=== PATIENT | male | born 1995 | race Caucasian/White ===

== ENCOUNTER 2018-09-21 13:23 | Emergency (ER) | payer MEDICAID ==
[~2018-09-21] VITALS: Ht 177.8 cm; Wt 86.0 kg
[2018-09-21] MEDS: ONDANSETRON HCL 4MG/2ML INJ IV STA (14:25)
[2018-09-21] MEDS: SODIUM CHLORIDE 0.9% 1,000 ML IV ONE (14:25)
[2018-09-21 14:49] LABS: BASOPHILS % 0.5 % (0.0-2.0); EOSINOPHILS % 0.5 % (0.0-5.0); HEMATOCRIT. 50.1 % (42.0-52.0); HEMOGLOBIN. 17.4 g/dL (14.0-18.0); LYMPHOCYTES % 22.9 % (20.0-50.0); MEAN CORPUSCULAR HEMOGLOBIN 30.7 pg (28.0-32.0); MEAN CORPUSCULAR VOLUME 88.5 fL (80.0-94.0); MEAN PLATELET VOLUME 8.6 fl (7.4-10.4); MONOCYTES % 7.6 % (2.0-8.0); NEUTROPHILS % 68.5 % (40.0-76.0); PLATELET 254 x1000/uL (130-400); RED BLOOD CELL COUNT 5.66 mill/uL (4.7-6.1); RED CELL DISTRIBUTION WIDTH 13.5 % (11.6-14.6)
[2018-09-21 14:50] LABS: CLARITY URINE CLEAR (CLEAR); COLOR URINE YELLOW (YELLOW); KETONES URINE TRACE (NEGATIVE); LEUKOCYTE ESTERASE URINE NEGATIVE (NEGATIVE); NITRITE URINE NEGATIVE (NEGATIVE); OCCULT BLOOD URINE NEGATIVE (NEGATIVE); PROTEIN URINE NEGATIVE (NEGATIVE); SPECIFIC GRAVITY URINE 1.028 (1.005-1.030)
[2018-09-21 14:53] LABS: CHLORIDE 102 mEq/L (98-107)
[2018-09-21 15:00] LABS: PROTHROMBIN TIME 10.6 sec (9.6-11.0)
[2018-09-21] MEDS: KETOROLAC 15MG/ML VIAL IV ONE (15:30)
[2018-09-21 16:15] VITALS: BP 110/80
== END 2018-09-21 16:15 | disposition home or self-care (01) ==
LOC: ER 13:23
DX: I88.0 Nonspecific mesenteric lymphadenitis (principal); R11.2 Nausea with vomiting, unspecified; E87.6 Hypokalemia; E16.2 Hypoglycemia, unspecified; F12.10 Cannabis abuse, uncomplicated
CPT/HCPCS: 36415; 74176; 80053; 81003; 82962; 83690; 85025; 85610; 96361; 96374; 99284; J2405; J7030

== ENCOUNTER 2018-11-24 17:21 | Emergency (ER) | payer MEDICAID ==
[~2018-11-24] VITALS: Ht 177.8 cm; Wt 85.0 kg
[2018-11-24] MEDS ORDERED: ACETAMINOPHEN 325MG TABLET PO ONE (18:00)
[2018-11-24 19:28] VITALS: BP 117/63
== END 2018-11-24 20:15 | disposition home or self-care (01) ==
LOC: ER 20:12
DX: R07.9 Chest pain, unspecified (principal)
CPT/HCPCS: 71046; 93005; 99283

== ENCOUNTER 2023-12-13 17:30 | Emergency (ER) | payer MEDICAID ==
[~2023-12-13] VITALS: Ht 172.7 cm; Wt 70.0 kg
[2023-12-13 17:39] VITALS: BP 130/76; PULSE 82; RESP 16; TEMP 98.3; O2SAT 100
[2023-12-13] MEDS ORDERED: IBUPROFEN 600MG TABLET PO ONE (20:30)
[2023-12-13] MEDS ORDERED: GABAPENTIN 300MG CAPSULE PO SCH (20:30)
[2023-12-13] MEDS ORDERED: ACETAMINOPHEN 325MG TABLET PO ONE (20:30)
== END 2023-12-13 21:10 | disposition home or self-care (01) ==
LOC: ER 17:30
DX: R51.9 Headache, unspecified (principal); F12.10 Cannabis abuse, uncomplicated
CPT/HCPCS: 93005; 99283